=== PATIENT | male | born 1955 | race Caucasian/White ===

== ENCOUNTER 2018-12-14 13:08 | Emergency (ER) | payer OTHER, BC ==
[~2018-12-14] VITALS: Ht 182.9 cm; Wt 104.5 kg
[2018-12-14 13:17] VITALS: TEMP 97.9
[2018-12-14] MEDS ORDERED: ASPIRIN E.C. 8181 MG PO (15:14)
[2018-12-14] MEDS ORDERED: TENORMIN 5050 MG/TAB PO (15:14)
[2018-12-14] MEDS ORDERED: ZYLOPRIM 100MG100 MG PO (15:14)
[2018-12-14] MEDS ORDERED: NORCO 325 MG-51 TAB PO (16:20)
[2018-12-14 16:40] VITALS: BP 130/98; PULSE 78
== END 2018-12-14 16:41 | disposition home or self-care (01) ==
LOC: COL.ER 13:08
DX: S49.91XA Unspecified injury of right shoulder and upper arm, initial encounter (principal); Z79.82 Long term (current) use of aspirin; W00.0XXA Fall on same level due to ice and snow, initial encounter; I10 Essential (primary) hypertension

== ENCOUNTER → 2018-12-27 | Outpatient (CLI) | payer OTHER ==
[~2018-12-27] MED LIST: ASPIRIN E.C. 8181 MG PO; NORCO 325 MG-51 TAB PO; TENORMIN 5050 MG/TAB PO; ZYLOPRIM 100MG100 MG PO
== END ==
LOC: COL.RAD 12:38
DX: S49.91XA Unspecified injury of right shoulder and upper arm, initial encounter (principal); M25.611 Stiffness of right shoulder, not elsewhere classified